=== PATIENT | female | born 1975 | race Caucasian/White ===

== ENCOUNTER → 2016-09-21 | Outpatient (CLI) | payer BC ==
[~2016-09-21] MED LIST: ATR10 PO; AZIT250T PO; CITA10TA8 PO; EPP3/2; EPP3/2 IM; FAMO40TA6 PO
--- NOTE | 2016-09-21 14:09 | DIAGNOSTIC IMAGING REPORT ---
KUB CLINICAL HISTORY: R10.9 Bilateral flank painPt complaining of sever bilat flank pa COMPARISON STUDY: No previous studies for comparison. FINDINGS: The soft tissues, psoas shadows, renal outlines and intestinal gas pattern appear normal. There is no evidence for bowel obstruction. No abnormal abdominal calcifications are seen. Several surgical clips from prior cholecystectomy are present. Bowel pattern is nonobstructive IMPRESSION: Normal study. Electronically signed by: Darin Rodney M.D. 09/21/2016 2:07 PM Dictated Date/Time: 09/21/2016 2:07 PM
== END | disposition home or self-care (01) ==
LOC: C.RAD1850 13:56
PROVIDERS: ATTEND Internal Medicine
DX: R10.9 Unspecified abdominal pain (principal); R39.9 Unspecified symptoms and signs involving the genitourinary system

== ENCOUNTER 2016-12-09 22:47 | Emergency (ER) | payer BC ==
[~2016-12-09] VITALS: Ht 160 cm; Wt 112.5 kg
[~2016-12-09 22:47] MED LIST changes: -ATR10 PO; -AZIT250T PO; -CITA10TA8 PO; -EPP3/2 IM
[2016-12-09 22:49] VITALS: TEMP 36.8; Ht 160 cm; Wt 112.5 kg
[2016-12-09] MEDS ORDERED: AZITHROMYCIN 250 MG TAB PO STA (23:34)
[2016-12-09] MEDS ORDERED: AZIT250T PO (23:38)
[2016-12-09 23:43] VITALS: BP 125/73; PULSE 70; O2SAT 98
[2016-12-09] MEDS ORDERED: EPP3/2 IM (23:44)
--- NOTE | 2016-12-10 01:17 | EMERGENCY ROOM VISIT NOTE ---
History Report prepared by Kalen: Faby Zaragoza Under the Supervision of: Dr. Filiberto Barker M.D. First contact with patient: 22:57 Chief Complaint: SHORTNESS OF BREATH Stated Complaint: SOB,COUGH,VOMITING History of Present Illness The patient is a 41 year old female who presents to the Emergency Room with complaints of a worsening dry cough beginning 2 days prior to arrival. The patient states that she feels short of breath when she coughs and noticed some wheezing. 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 The patient denies feeling nauseated at the time. The patient after was gagging and choking on the vomit. Since then she has been experiencing a worsening cough. The patient notes that she has been experiencing chills. She denies vomiting since the one episode, congestion, recent fevers, nausea, alcohol use, urinary symptoms, vaginal bleeding or chance of . The patient is a smoker and smokes 1 pack a day. 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 A total of 10 systems reviewed and were otherwise negative. Past Medical & Surgical Medical Problems: (1) Anxiety (2) Hypothyroidism (3) Kidney stones (4) Optic neuritis (5) Tubal ligation (6) Vitamin D deficiency Surgical Problems: (1) History of cholecystectomy (2) History of tubal ligation (3) S/P ACL surgery Family History Heart disease Social History Smoking Status: Current Every Day Smoker Alcohol Use: none Drug Use: none Marital Status: Housing Status: lives with family Occupation Status: employed Current/Historical Medications Scheduled Azithromycin (Zithromax), 250 MG PO DAILY Scheduled PRN Epinephrine (Epipen), 0.3 MG IM UD PRN for ALLERGIC REACTION Allergies Coded Allergies: [place] (Unverified Allergy, Severe, CAN'T BREATH, 12/09/16) [place]ut (Unverified Allergy, Severe, CAN'T BREATH, 12/09/16) Pecan (Unverified Allergy, Severe, CAN'T BREATH, 12/09/16) Sulfamethoxazole w/Trimethoprim (Verified Allergy, Intermediate, RASH, ) Buspirone (Verified Allergy, Unknown, confusion, 12/09/16) Ciprofloxacin (Unverified Allergy, Unknown, UNKNOWN, 12/09/16) Gadolinium (Verified Allergy, Unknown, vomiting, 12/09/16) gmg Heparin (Verified Allergy, Unknown, SHORTNESS OF BREATH, 12/09/16) Iodinated Diagnostic Agents (Verified Allergy, Unknown, chest tightness, tingling, 12/09/16) gmg Ketorolac Tromethamine (Verified Allergy, Unknown, "Pass out", 12/09/16) Morphine (Verified Allergy, Unknown, 12/09/16) Oxycodone (Verified Allergy, Unknown, PERCOCET, 12/09/16) Penicillins (Verified Allergy, Unknown, 12/09/16) Physical Exam Vital Signs Date Time Temp Pulse Resp B/P Pulse Ox O2 Delivery O2 Flow Rate FiO2 12/09/16 23:43 70 16 125/73 98 Room Air 12/09/16 22:49 36.8 88 20 122/52 93 Room Air Physical Exam Constitutional: Vital signs reviewed. Eyes: Pupils are equal round reactive to light. Conjunctiva are noninjected. ENT: Pharynx is clear without erythema or exudate. Mucous membranes are moist. Neck supple without meningeal signs. Respiratory: Clear to auscultation bilaterally. Breath sounds are equal bilaterally. Cardiovascular: Regular rate and rhythm. No rubs or gallops. GI: Soft, nondistended and nontender. Bowel sounds are present. Musculoskeletal: No peripheral edema. No lower extremity tenderness. Integumentary: No cyanosis. Neurological: The patient is awake and alert. No focal deficits. Psychiatric: Normal affect. Medical Decision & Procedures ER Provider Diagnostic Interpretation: X-ray results as stated below per interpretation by me: Chest X-Ray: Left lower lobe infiltrate. No consolidation. Medications Administered Medications (Trade) Dose Ordered Sig/Yamile Route Start Time Stop Time Status Last Admin Dose Admin Azithromycin (Zithromax Tab) 500 mg NOW STAT PO 12/09/16 23:34 12/09/16 23:35 DC 12/09/16 23:43 500 MG ED Course 2258: The patient was evaluated in room A3. A complete history and physical exam was performed. 0502: I talked with the patient. She states that she is allergic to penicillin and cannot take Clindamycin due to getting a rash. She states that she can only take Zithromax. I explained it does not offer full coverage for aspiration pneumonia. She says she will try and will return to the ED if her symptoms worsen. 2334: Zithromax Tab 500 mg PO. 2340: Upon reevaluation, the patient appeared to have improvement of her symptoms. I discussed tonight's findings with her. She verbalized agreement of the treatment plan. She was discharged home. Medical Decision This is a 41-year-old female who presents with a cough after vomiting. Differential diagnosis includes bronchitis, smoker's cough, pneumonia, aspiration. I did perform a limited focused review of portions of the patient' s old chart on the electronic medical record. The patient has had no recent pertinent visits to this hospital. Medication Reconciliation: I attest that I have personally reviewed the patient' s current medication list. Blood Pressure Screening: Patient was found to have normal blood pressure on screening and does not require follow-up. I did evaluate the patient as noted above. The patient is presenting after choking on her vomit 2 days ago. She has a persistent cough and was concerned about aspiration. She denies any fevers but has had some chills. She denies any chest pain. I did order and personally review the patient's chest x-ray as described above. Per my interpretation she does have a left lower lobe infiltrate. I did discuss the chest x-ray results with the patient. I did recommend antibiotic coverage for aspiration pneumonia. The patient has an allergy to penicillin and fluoroquinolones. She also states that she cannot take clindamycin because it makes her very ill. She states Zithromax works for her. I did explain to her that Zithromax does not gently cover for aspiration pneumonia but she states that is the only antibiotic she can tolerate. We will therefore attempt to treat her with Zithromax and she will follow closely with her doctor and return for any worsening symptoms. She was given her first dose here and discharged with a prescription for 4 more days of Zithromax. Impression Primary Impression: Left lower lobe pneumonia Scribe Attestation The scribe's documentation has been prepared under my direct and personally reviewed by me in its entirety. I confirm that the note above accurately reflects all work, treatment, procedures, and medical decision making performed by me. Departure Information Dispostion Home / Self-Care Prescriptions Azithromycin (Zithromax) 250 Mg Tab 250 MG PO DAILY, #4 TAB Prov: Filiberto Barker M.D. 12/09/16 Referrals No Doctor, Assigned (PCP) Forms HOME CARE DOCUMENTATION FORM, IMPORTANT VISIT INFORMATION Patient Instructions [facility] Additional Instructions You have been examined and treated today on an emergency basis only. This is not a substitute for, or an effort to provide, complete comprehensive medical care. It is impossible to recognize and treat all injuries or illnesses in a single emergency department visit. It is therefore important that you follow up closely with your physician. Call as soon as possible for an appointment. Return for worsening symptoms or if you develop fever, chest pain or any other concerning symptoms. Problem Qualifiers Primary Impression: Left lower lobe pneumonia Pneumonia type: due to unspecified organism Qualified Codes: J18.1 - Lobar pneumonia, unspecified organism
--- NOTE | 2016-12-10 08:16 | DIAGNOSTIC IMAGING REPORT ---
CHEST 2 VIEWS ROUTINE HISTORY: cough eval for pna COMPARISON: None. FINDINGS: Small linear densities within the right middle lobe and lingula are again noted. This favors scarring or atelectasis. The lungs are otherwise clear. No pleural effusions. No pneumothorax. Cholecystectomy. The heart is normal in size. IMPRESSION: No significant change compared to the prior study. No acute process. Electronically signed by: Gerry Carr M.D. 12/10/2016 8:15 AM Dictated Date/Time: 12/10/2016 8:14 AM
== END 2016-12-09 23:45 | disposition home or self-care (01) ==
LOC: C.EDB 22:48 → C.EDA 23:45
DX: J18.1 Lobar pneumonia, unspecified organism (principal); E03.9 Hypothyroidism, unspecified; F41.9 Anxiety disorder, unspecified; Z87.442 Personal history of urinary calculi; Z82.49 Family history of ischemic heart disease and other diseases of the circulatory system; F17.200 Nicotine dependence, unspecified, uncomplicated

== ENCOUNTER → 2017-04-12 | Outpatient (CLI) | payer BC ==
[~2017-04-12] MED LIST changes: +AZIT250T PO; -EPP3/2; +EPP3/2 IM; -FAMO40TA6 PO
[2017-04-12 16:42] LABS: HEMATOCRIT 41.2 % (37-47); MEAN CELL VOLUME 97.2 fL (80-100); MEAN PLATELET VOLUME 10.9 fL (7.4-10.4); PLATELET COUNT 348 K/uL (130-400); RED BLOOD COUNT 4.24 M/uL (4.2-5.4); WHITE BLOOD COUNT 8.49 K/uL (4.8-10.8)
[2017-04-12 17:01] LABS: PREG INTERNAL NEGATIVE QC NEG CLEAR BACKGROUND; PREG INTERNAL POSITIVE QC POS CONTROL LINE
== END | disposition home or self-care (01) ==
LOC: C.LAB1850 15:43
PROVIDERS: ATTEND Physician Assistant
DX: N92.0 Excessive and frequent menstruation with regular cycle (principal)

== ENCOUNTER 2017-04-17 15:38 | Emergency (ER) | payer BC ==
[~2017-04-17] VITALS: Ht 160 cm; Wt 111.6 kg
[2017-04-17 15:46] VITALS: TEMP 36.9; Ht 160 cm; Wt 111.6 kg
[2017-04-17] MEDS ORDERED: FAMOTIDINE IV INJ 20 MG in DEXTROSE 5% 100ML 100 ML IV STA (16:27)
[2017-04-17] MEDS ORDERED: GI COCKTAIL PO STA (16:27)
[2017-04-17 17:09] LABS: POINT OF CARE TROPONIN I < 0.030 ng/ml (0-0.045)
[2017-04-17] MEDS ORDERED: FAMOTIDINE 20MG/102 ML D5W ONE (17:09)
[2017-04-17] MEDS ORDERED: ALUMINUM/MAGNESIUM SUSP 30 ML UDC ONE (17:10)
[2017-04-17] MEDS ORDERED: LIDOCAINE HCL 2% VISC SOLN 20 ML UDC ONE (17:10)
[2017-04-17 17:12] LABS: BASO % 0.3 %; BASO ABS # 0.03 K/uL (0-0.2); COMPLETE YES; EOS % 1.2 %; HEMATOCRIT 43.5 % (37-47); IG% 0.4 %; LYMPH % 21.2 %; LYMPH ABS # 2.18 K/uL (1.2-3.4); MEAN CELL VOLUME 97.1 fL (80-100); MEAN CORPUSCULAR HEMOGLOBIN 32.4 pg (25-34); MEAN CORPUSCULAR HGB CONC 33.3 g/dl (32-36); MEAN PLATELET VOLUME 10.9 fL (7.4-10.4); MONO % 5.5 %; NEUT % 71.4 %; PLATELET COUNT 365 K/uL (130-400); RED BLOOD COUNT 4.48 M/uL (4.2-5.4); WHITE BLOOD COUNT 10.29 K/uL (4.8-10.8)
[2017-04-17] MEDS ORDERED: CITA10TA8 PO (17:22)
[2017-04-17] MEDS ORDERED: ATR10 PO (17:22)
[2017-04-17 17:42] LABS: BUN/CREATININE RATIO 11.8 (10-20); CALCIUM 10.3 mg/dl (8.5-10.1); CREATININE 0.74 mg/dl (0.60-1.20); MAGNESIUM 1.9 mg/dl (1.8-2.4); POTASSIUM 3.8 mmol/L (3.5-5.1)
[2017-04-17 17:52] LABS: THYROID STIMULATING HORMONE 1.62 uIu/ml (0.300-4.500)
[2017-04-17] MEDS ORDERED: KETOROLAC TROMETHAMINE 30 MG/ML VIAL IV STA (17:57)
[2017-04-17] MEDS ORDERED: SUCRALFATE 1 GM/10 ML UDC PO STA (18:53)
--- NOTE | 2017-04-17 19:25 | DIAGNOSTIC IMAGING REPORT ---
ABDOMEN 2VIEW W/PA CHEST RTN HISTORY: 41 years-old Female chest pain, ruq pain acute chest and right upper quadrant abdominal pain COMPARISON: Chest radiograph 12/09/2016 TECHNIQUE: Frontal view of the chest with erect and supine views of the abdomen FINDINGS: Cardiomediastinal and hilar silhouettes are within normal limits. There is no pneumothorax, pleural effusion or lobar airspace consolidation. Linear subsegmental perihilar and bibasilar opacities are most compatible with atelectasis or pleural parenchymal scarring, appearing similar from comparison. The bones are grossly intact. Cholecystectomy clips are noted. No pneumoperitoneum. The bowel gas pattern is nonobstructive. No urolith identified. Clips are seen within the pelvis suggesting tubo-ovarian occlusion devices. No fracture. IMPRESSION: 1. Subsegmental perihilar and bibasilar atelectasis or scarring without acute cardiopulmonary process. 2. Nonobstructive bowel gas pattern without pneumoperitoneum. The above report was generated using voice recognition software. It may contain grammatical, syntax or spelling errors. Electronically signed by: Franky Alcala M.D. 04/17/2017 7:24 PM Dictated Date/Time: 04/17/2017 7:22 PM
--- NOTE | 2017-04-17 19:26 | EMERGENCY ROOM VISIT NOTE ---
History Report prepared by Kalen: Bradley Frost Under the Supervision of: Dr. Gabbi Patel D.O. First contact with patient: 16:13 Chief Complaint: CHEST PAIN Stated Complaint: CHEST DISCOMFORT, SEVERE HEARTBURN Nursing Triage Summary: Patient reports epigastric pain that started this morning around 10am states it feels like "extremly bad heartburn" states she has taken everything over the counter that she can and it is not helping. History of Present Illness The patient is a 41 year old female who presents to the Emergency Room with complaints of intermittent centralized chest pain beginning this morning. She states that her pain began with waking up. She also complains of nausea, stuffy nose, and intermittent "shooting" RUQ abdominal pain. The patient denies any vomiting, or sore throat. She describes her pain as a "burning". She notes that she has had diarrhea intermittently for the past two weeks. The patient has a history of anxiety, but states that her pain has not resolved with anxiety medication. She also has a history of GERD, but her pain was not improved with medication for GERD. She states that nothing has improved her symptoms. The patient denies any recent travel, or medication changes. She has not had an endoscopy in around 20 years. She has a history of a cholecystectomy, and states that her current abdominal pain feels similar to her previous gallbladder pain. The patient is currently a smoker. Source of History: patient Onset: This morning Position: chest (centralized) Quality: burning Timing: intermittent Modifying Factors (Relieving): other (none) Associated Symptoms: + abdominal pain (intermittent "shooting" RUQ), + diarrhea (intermittent past two weeks), No sorethroat, No vomiting Note: The patient also complains of a stuffy nose. Review of Systems See HPI for pertinent positives & negatives. A total of 10 systems reviewed and were otherwise negative. Past Medical & Surgical Medical Problems: (1) Anxiety (2) Hypothyroidism (3) Kidney stones (4) Optic neuritis (5) Tubal ligation (6) Vitamin D deficiency Surgical Problems: (1) History of cholecystectomy (2) History of tubal ligation (3) S/P ACL surgery Family History Heart disease Social History Smoking Status: Current Every Day Smoker Alcohol Use: none Drug Use: none Marital Status: Housing Status: lives with family Occupation Status: employed Current/Historical Medications Scheduled Citalopram Hydrobromide (Celexa), 5 MG PO DAILY Scheduled PRN Epinephrine (Epipen), 0.3 MG IM UD PRN for ALLERGIC REACTION Hydroxyzine HCl (Hydroxyzine HCl), 1 TAB PO for Anxiety Allergies Coded Allergies: [place] (Unverified Allergy, Severe, CAN'T BREATH, 04/17/17) Coconut (Unverified Allergy, Severe, CAN'T BREATH, 04/17/17) Pecan (Unverified Allergy, Severe, CAN'T BREATH, 04/17/17) Sulfamethoxazole w/Trimethoprim (Verified Allergy, Intermediate, RASH, 04/17/17) Buspirone (Verified Allergy, Unknown, confusion, 04/17/17) Ciprofloxacin (Unverified Allergy, Unknown, UNKNOWN, 04/17/17) Gadolinium (Verified Allergy, Unknown, vomiting, 04/17/17) gmg Heparin (Verified Allergy, Unknown, SHORTNESS OF BREATH, 04/17/17) Iodinated Diagnostic Agents (Verified Allergy, Unknown, chest tightness, tingling, 04/17/17) gmg Ketorolac Tromethamine (Verified Allergy, Unknown, "Pass out", 04/17/17) Morphine (Verified Allergy, Unknown, 04/17/17) Oxycodone (Verified Allergy, Unknown, PERCOCET, 04/17/17) Penicillins (Verified Allergy, Unknown, 04/17/17) Physical Exam Vital Signs Date Time Temp Pulse Resp B/P (MAP) Pulse Ox O2 Delivery O2 Flow Rate FiO2 04/17/17 20:15 83 18 141/71 96 04/17/17 15:46 36.9 91 20 125/69 96 Room Air Physical Exam GENERAL: alert, well appearing, well nourished, no distress, non-toxic EYE EXAM: normal conjunctiva, PERRL and EOM's grossly intact OROPHARYNX: no exudate, no erythema, lips, buccal mucosa, and tongue normal and mucous membranes are moist NECK: supple, no nuchal rigidity, no adenopathy, non-tender LUNGS: Clear to auscultation. Normal chest wall mechanics HEART: no murmurs, S1 normal and S2 normal ABDOMEN: abdomen obese, soft, non-tender, normo-active bowel sounds, no masses, no rebound or guarding. BACK: Back is symmetrical on inspection and there is no deformity, no midline tenderness, no CVA tenderness. SKIN: no rashes and no bruising UPPER EXTREMITIES: upper extremities are grossly normal. LOWER EXTREMITIES: No pitting edema. NEURO EXAM: Normal sensorium, cranial nerves II-XII grossly intact, normal speech, no gross weakness of arms, no gross weakness of legs. Medical Decision & Procedures ER Provider Diagnostic Interpretation: Radiology results have been interpreted by the radiologist and reviewed by me. ABDOMEN 2VIEW W/PA CHEST RTN FINDINGS: Cardiomediastinal and hilar silhouettes are within normal limits. There is no pneumothorax, pleural effusion or lobar airspace consolidation. Linear subsegmental perihilar and bibasilar opacities are most compatible with atelectasis or pleural parenchymal scarring, appearing similar from comparison. The bones are grossly intact. Cholecystectomy clips are noted. No pneumoperitoneum. The bowel gas pattern is nonobstructive. No urolith identified. Clips are seen within the pelvis suggesting tubo-ovarian occlusion devices. No fracture. IMPRESSION: 1. Subsegmental perihilar and bibasilar atelectasis or scarring without acute cardiopulmonary process. 2. Nonobstructive bowel gas pattern without pneumoperitoneum. The above report was generated using voice recognition software. It may contain grammatical, syntax or spelling errors. Electronically signed by: Franky Alcala M.D. 04/17/2017 7:24 PM Laboratory Results 04/17/17 16:35 Red Blood Count 4.48, Mean Corpuscular Volume 97.1, Mean Corpuscular Hemoglobin 32.4, Mean Corpuscular Hemoglobin Concent 33.3, Mean Platelet Volume 10.9, Neutrophils (%) (Auto) 71.4, Lymphocytes (%) (Auto) 21.2, Monocytes (%) (Auto) 5.5, Eosinophils (%) (Auto) 1.2, Basophils (%) (Auto) 0.3, Neutrophils # (Auto) 7.35, Lymphocytes # (Auto) 2.18, Monocytes # (Auto) 0.57, Eosinophils # (Auto) 0.12, Basophils # (Auto) 0.03 04/17/17 16:35 Test 04/17/17 16:35 04/17/17 16:52 White Blood Count 10.29 K/uL (4.8-10.8) Red Blood Count 4.48 M/uL (4.2-5.4) Hemoglobin 14.5 g/dL (12.0-16.0) Hematocrit 43.5 % (37-47) Mean Corpuscular Volume 97.1 fL (80-100) Mean Corpuscular Hemoglobin 32.4 pg (25-34) Mean Corpuscular Hemoglobin Concent 33.3 g/dl (32-36) Platelet Count 365 K/uL (130-400) Mean Platelet Volume 10.9 fL (7.4-10.4) Neutrophils (%) (Auto) 71.4 % Lymphocytes (%) (Auto) 21.2 % Monocytes (%) (Auto) 5.5 % Eosinophils (%) (Auto) 1.2 % Basophils (%) (Auto) 0.3 % Neutrophils # (Auto) 7.35 K/uL (1.4-6.5) Lymphocytes # (Auto) 2.18 K/uL (1.2-3.4) Monocytes # (Auto) 0.57 K/uL (0.11-0.59) Eosinophils # (Auto) 0.12 K/uL (0-0.5) Basophils # (Auto) 0.03 K/uL (0-0.2) RDW Standard Deviation 43.9 fL (36.4-46.3) RDW Coefficient of Variation 12.4 % (11.5-14.5) Immature Granulocyte % (Auto) 0.4 % Immature Granulocyte # (Auto) 0.04 K/uL (0.00-0.02) Anion Gap 10.0 mmol/L (3-11) Est Creatinine Clear Calc Drug Dose 122.6 ml/min Estimated GFR () 118.3 Estimated GFR (Non- 102.1 BUN/Creatinine Ratio 11.8 (10-20) Calcium Level 10.3 mg/dl (8.5-10.1) Magnesium Level 1.9 mg/dl (1.8-2.4) Total Bilirubin 0.3 mg/dl (0.2-1) Aspartate Amino Transf (AST/SGOT) 28 U/L (15-37) Alanine Aminotransferase (ALT/SGPT) 43 U/L (12-78) Alkaline Phosphatase 82 U/L (45-117) Total Protein 7.9 gm/dl (6.4-8.2) Albumin 3.9 gm/dl (3.4-5.0) Globulin 4.0 gm/dl (2.5-4.0) Albumin/Globulin Ratio 1.0 (0.9-2) Lipase 139 U/L (73-393) Thyroid Stimulating Hormone (TSH) 1.620 uIu/ml (0.300-4.500) Chemistry Specimen Hemolysis Bedside D-Dimer 319 ng/mlFEU (0-450) Bedside Troponin I < 0.030 ng/ml (0-0.045) Laboratory results per my review. Medications Administered Medications (Trade) Dose Ordered Sig/Yamile Route Start Time Stop Time Status Last Admin Dose Admin Famotidine (Pepcid 20mg/100 ml) 20 mg STK-MED ONCE .ROUTE 04/17/17 17:09 04/17/17 17:10 DC 04/17/17 17:12 20 MG Lidocaine HCl (Viscous Lidocaine 2% Soln) 20 ml STK-MED ONCE .ROUTE 04/17/17 17:10 04/17/17 17:11 DC 04/17/17 17:15 10 ML Al Hydroxide/Mg Hydroxide (Maalox Susp) 30 ml STK-MED ONCE .ROUTE 04/17/17 17:10 04/17/17 17:11 DC 04/17/17 17:15 30 ML Sucralfate (Carafate Susp) 1 gm NOW STAT PO 04/17/17 18:53 04/17/17 18:54 DC 04/17/17 19:17 1 GM ECG Indication: chest pain Rate (beats per minute): 96 Rhythm: normal sinus Findings: no acute ischemic change, no ectopy, other (Normal axis. Normal intervals.) ED Course 1618: The patient was evaluated in room C2B. A complete history and physical exam was performed. 1627: Ordered GI Cocktail 24 mL PO, Famotidine 20 mg/Dextrose 102 mL @ 200 mL/ hr IV. 1757: Ordered Toradol Inj 30 mg IV. 1850: Upon reevaluation, the patient is feeling better. She is still having some burning pain, but would like to leave. I discussed the findings and the treatment plan with the patient. She verbalizes agreement and understanding. The patient was discharged home. 1853: Ordered Carafate Susp 1 gm PO. Medical Decision Differential diagnosis: Etiologies such as cardiac ischemia, aortic dissection, pulmonary embolism, pneumonia, pneumothorax, musculoskeletal, infections, pericarditis, myocarditis , esophageal rupture, gastrointestinal, as well as others were entertained. Patient well-appearing here despite complaints. No risk factors for ACS and troponin negative after greater than 8 hours of pain, no risk factors for PE. Labs and imaging reassuring. Patient states symptoms not consistent with prior episodes of anxiety or reflux are not improved with her usual medications for either. Patient given additional medications here and felt some improvement, however symptoms not completely resolved. Discussed with her avoidance of acidic foods, initiation of an [id number] acid reducing medication, follow -up with family doctor, symptoms watch and return for, she verbalized understanding was agreeable with plan. Patient was tolerating by mouth and was infiltrated with a steady gait and well-appearing at time of discharge. Doubt tamponade, dissection, PE, pneumonia, effusion, pneumothorax, occult GI bleed, esophageal perforation. Medication Reconcilliation Current Medication List: was personally reviewed by me Blood Pressure Screening Patient's blood pressure: Normal blood pressure Blood pressure disposition: Did not require urgent referral Impression Primary Impression: Chest pain Additional Impressions: GERD (gastroesophageal reflux disease) Tobacco abuse Scribe Attestation The scribe's documentation has been prepared under my direction and personally reviewed by me in its entirety. I confirm that the note above accurately reflects all work, treatment, procedures, and medical decision making performed by me. Departure Information Dispostion Home / Self-Care Referrals No Doctor, Assigned (PCP) Patient Instructions My [facility] Additional Instructions Please begin taking an acid reducing medication such as those that are now found [id number] like Pepcid or Prilosec every day. Please avoid any highly acidic foods such as alcohol, coffee, tomato-based products, or citrus fruits. Please follow up with your family doctor about your atypical chest discomfort today. If you have any worsening discomfort, develop trouble breathing, fevers, dizziness, vomiting, notice black or bloody stools, or you' ve any other new concerns, please return the emergency room. Problem Qualifiers Primary Impression: Chest pain Chest pain type: unspecified Qualified Codes: R07.9 - Chest pain, unspecified Additional Impressions: GERD (gastroesophageal reflux disease) Esophagitis presence: esophagitis presence not specified Qualified Codes: K21.9 - Gastro-esophageal reflux disease without esophagitis
[2017-04-17 20:15] VITALS: BP 141/71; PULSE 83; O2SAT 96
== END 2017-04-17 20:17 | disposition home or self-care (01) ==
LOC: C.EDB 15:39 → C.EDC 20:17
DX: K21.9 Gastro-esophageal reflux disease without esophagitis (principal); F17.210 Nicotine dependence, cigarettes, uncomplicated; F41.9 Anxiety disorder, unspecified; Z90.49 Acquired absence of other specified parts of digestive tract; E03.9 Hypothyroidism, unspecified; Z87.442 Personal history of urinary calculi; Z98.51 Tubal ligation status; E55.9 Vitamin D deficiency, unspecified; H46.9 Unspecified optic neuritis

== ENCOUNTER → 2017-04-23 | Outpatient (CLI) | payer BC ==
[~2017-04-23] MED LIST changes: +ATR10 PO; -AZIT250T PO; +CITA10TA8 PO
[2017-04-23 13:23] LABS: BLOOD UREA NITROGEN 13 mg/dl (7-18); BUN/CREATININE RATIO 15.1 (10-20); CALCIUM 8.9 mg/dl (8.5-10.1); CARBON DIOXIDE 28 mmol/L (21-32); CHLORIDE 105 mmol/L (98-107); CREATININE 0.83 mg/dl (0.60-1.20); GLUCOSE 93 mg/dl (70-99); POTASSIUM 4.3 mmol/L (3.5-5.1); SODIUM 137 mmol/L (136-145)
[2017-04-23 13:26] LABS: C-REACTIVE PROTEIN 1.43 mg/dl (0-0.29); CHOLESTEROL 203 mg/dl (0-200); CHOLESTEROL/HDL RATIO 4.3; HDL CHOLESTEROL 47 mg/dl; LDL CHOLESTEROL CALCULATED 122 mg/dl; TRIGLYCERIDES 169 mg/dl (0-150); VERY LOW DENSITY LIPOPROT CALC 34 mg/dl
[2017-04-25 10:53] LABS: IGA SERUM 237 mg/dL (81-463); TIS TRANS IGA 1 U/mL (<4)
== END | disposition home or self-care (01) ==
LOC: C.LAB1850 10:02
PROVIDERS: ATTEND Internal Medicine
DX: Z13.220 Encounter for screening for lipoid disorders (principal); E83.52 Hypercalcemia; M25.50 Pain in unspecified joint; R14.0 Abdominal distension (gaseous); E73.9 Lactose intolerance, unspecified

== ENCOUNTER → 2018-03-06 | Outpatient (CLI) | payer BC | END | disposition home or self-care (01) | LOC: C.LABSPEC 11:54 | PROVIDERS: ATTEND Internal Medicine | DX: R31.9 Hematuria, unspecified (principal) ==